=== PATIENT | male | born 1990 | race American Indian/Alaskan Native ===

== ENCOUNTER 2019-01-16 16:43 | Emergency (ER) | payer MEDICAID, OTHER ==
[~2019-01-16] VITALS: Ht 172.7 cm; Wt 93.0 kg
[2019-01-16 16:54] VITALS: BP 130/76
[2019-01-16] MEDS ORDERED: PENI500T2 PO (17:23)
[2019-01-16] MEDS ORDERED: ACET-3067 PO (17:23)
[2019-01-16] MEDS ORDERED: HYDROcodone/acetaminophen 5mg/325mg tablet PO ONE (17:25)
== END 2019-01-16 17:31 | disposition home or self-care (01) ==
LOC: EDBD → ER 16:44 → MERGE 16:44 → ER 17:31
DX: K02.9 Dental caries, unspecified (principal); F15.90 Other stimulant use, unspecified, uncomplicated; Z87.891 Personal history of nicotine dependence
CPT/HCPCS: 99283